=== PATIENT | male | born 1940 | race Caucasian/White ===

== ENCOUNTER 2016-09-25 07:21 | Inpatient (IN) ==
[2016-09-25] MEDS ORDERED: NS 1,000 ML IV PRN (07:29)
--- NOTE | 2016-09-25 08:17 | HISTORY AND PHYSICAL ---
HISTORY OF PRESENT ILLNESS: This is a 76-year-old who has been having some back pain which we thought was musculoskeletal. This has improved. It was in his right lower back. Yesterday, he had some lower abdominal cramping and had 3 stools with a little bit of blood. He denies any fever or chills. Denies any diarrhea. No weight loss. No real change in diet or appetite. PAST MEDICAL HISTORY: History of lymphoma that had been treated and in remission, history of lower back pain with radicular pain in the past, hypertension, hypercholesterolemia, and benign prostatic hypertrophy. ALLERGIES: No known drug allergies. CURRENT MEDICATIONS: Coreg 6.25 mg b.i.d., Lasix 40 mg a day, Prinivil 5 mg a day, spironolactone 12.25 daily, vitamin B complex. He is on Coumadin 5 mg at bedtime. REVIEW OF SYSTEMS: General: No weight gain or loss. No fever or chills. HEENT: Unremarkable. Respiratory: No increased work of breathing or dyspnea. Cardiovascular: No chest pain or tachy palpitation. GI: Unremarkable other than above. : Unremarkable other than above. Musculoskeletal/Neurologic: Some lower back pain. Endocrinologic/Hematologic: No significant history. FAMILY HISTORY: Noncontributory. SOCIAL HISTORY: Negative for alcohol or tobacco. PHYSICAL EXAMINATION: VITAL SIGNS: Temperature 98.1 degrees, pulse 64, respirations 20, blood pressure 120/91. Weight 265 pounds, height 6 feet. HEENT: Pupils are equal and round. LUNGS: Clear in all lung zamarripa. CARDIOVASCULAR: Regular rhythm and rate without murmur or S3. ABDOMEN: Soft. SKIN: Warm and dry. No sign of edema. ASSESSMENT AND PLAN: 1. Hematochezia, lower abdominal cramping. I think it has been several years since he has had a colonoscopy. History of lymphoma in the background. He is on Coumadin. We will check PT and PTT. Admit patient and pursue colonoscopy depending on his lab results. 2. History lymphoma, has been treated and in remission. 3. Osteoarthritis. 4. Coumadin, I believe from previous history of deep venous thrombosis. cc: Brannon Powers MD
[2016-09-25] MEDS ORDERED: ZOFRAN IV PRN (09:45)
[2016-09-25] MEDS ORDERED: ALDACTONE PO SCH (09:45)
[2016-09-25] MEDS ORDERED: TYLENOL PO PRN (09:45)
[2016-09-25 09:54] LABS: MANUAL DIFF NEEDED? NO
[2016-09-25 10:03] LABS: BASO% 0.3 % (0.0-0.8); EOS# 0.15 X1000 (0.0-0.7); HEMATOCRIT 34.8 % (42.0-52.0); HEMOGLOBIN 11.9 g/dL (14.0-18.0); IMM GRAN# 0.04 X1000 (0.0-0.04); IMM GRAN% 0.3 % (0.0-0.5); LYMPH% 20.3 % (20.5-51.1); MCH 33.3 PG (27-31); MCHC 34.2 g/dL (33-37); MCV 97.5 FL (81-99); MONO# 1.49 X1000 (0.11-0.59); MONO% 10.1 % (1.7-9.3); MPV 11.2 FL (7.4-10.4); PLT 334 X1000 (130-400); RBC 3.57 XMIL (4.7-6.1)
[2016-09-25] MEDS: ALDACTONE PO SCH (13:49)
[2016-09-25] MEDS: VICON-C PO SCH (13:49)
[2016-09-25] MEDS: COREG PO SCH ×2 (13:49→22:33)
[2016-09-25] MEDS: PRINIVIL PO SCH (13:49)
[2016-09-25] MEDS: LASIX PO SCH (13:49)
--- NOTE | 2016-09-25 22:26 | CONSULTATION ---
DATE OF CONSULTATION: 09/25/2016 PRIMARY CARE PHYSICIAN: Brannon Powers M.D. PRIMARY FINANCIAL SERVICES TECHNICIAN: Elijah Pacheco M.D. INDICATION FOR CONSULTATION: Rectal bleeding. HISTORY OF PRESENT ILLNESS: The patient is a 76-year-old, white male who states that he was having some difficulty with low back pain. He states that he was placed on pain medication for control of his back pain which led to constipation. Over the next few days, he developed diffuse abdominal pain that is greatest in the right lower quadrant and left lower quadrant. This was followed by 2 days of rectal bleeding. He continues to have diffuse abdominal pain. He is concerned because he has a history of diverticulitis and colon polyps. He last underwent a colonoscopy approximately 5 years by Elijah Pacheco M.D. PAST MEDICAL HISTORY: 1. Lymphoma. 2. Low back pain. 3. Hypertension. 4. Hyperlipidemia. 5. Benign prostatic hypertrophy. 6. Colon polyps. 7. Diverticulitis. 8. DVT. 9. Osteoarthritis. PAST SURGICAL HISTORY: None. MEDICATION ALLERGIES: None. HOME MEDICATIONS: 1. Coreg. 2. Lasix. 3. Prinivil. 4. Spironolactone. 5. Vitamin B complex. 6. Coumadin. FAMILY HISTORY: Negative for colon cancer and esophageal cancer. SOCIAL HISTORY: Negative for alcohol, tobacco or recreational drug use. PHYSICAL EXAMINATION: General: He is in no acute distress. Vital Signs: His blood pressure is 117/78, pulse is 68, respirations 16, temperature of 98.2 degrees. HEENT: Negative for oropharyngeal mucosal lesions. Pulmonary: Lungs are clear to auscultation, percussion and palpation with normal expiratory effort. Cardiovascular: Reveals regular rate and rhythm with no gallops or rubs. Abdominal: Reveals diffuse abdominal tenderness. His entire abdomen is tender around the colon gutter. It is greatest in the right lower quadrant, but he has significant tenderness in the left lower quadrant. There is no rebound or guarding. Extremities: Bilaterally are negative for cyanosis, clubbing, or edema. OBJECTIVE DATA: Remarkable for hemoglobin of 11.9 with hematocrit of 34.8, and a white count of 14.80. He has 334,000 platelets. His magnesium is 2.1 and his TSH is 1.65. There are no other labs available for our review. IMPRESSION: 1. Rectal bleeding. 2. Chronic anticoagulation. 3. Diffuse abdominal pain. 4. History of diverticulitis. 5. History of colon polyps. RECOMMENDATION: 1. The patient is currently receiving anticoagulation. I would currently hold this. There is not a current PT/INR available for our review. I will check this and a CBC. 2. The patient has a history of acute diverticulitis with abdominal wall tenderness that is suggestive of either an acute colitis or diverticulitis. Therefore, please obtain an abdominal-pelvic CT in the morning for further evaluation. It is most worrisome for acute diverticulitis in light of his leukocytosis. Therefore, I will empirically place him on Levaquin and Flagyl pending his CT scan in the morning. 3. Please check a complete metabolic panel and CRP in the morning for further evaluation of his overall clinical status. He will need a complete metabolic panel in order to have the pelvic CT. 4. The patient has been followed by Dr. Elijah Pacheco. He will most likely need a colonoscopy at some point in the future. Therefore, I will defer to Dr. Pacheco in the morning and make him aware of his admission. 5. Additional recommendations to follow by Dr. Elijah Pacheco. cc: MD Elijah Moffett MD MTDD
[2016-09-25] MEDS: FLAGYL 250 MG/NS 250 MG/50 ML IVPB IV SCH (23:40)
[2016-09-26] MEDS: LEVAQUIN 750 MG/D5W 750 MG/150 ML IVPB IV SCH ×2 (00:17→22:54)
[2016-09-26] MEDS: FLAGYL 250 MG/NS 250 MG/50 ML IVPB IV SCH ×5 (05:15→22:53)
--- NOTE | 2016-09-26 06:23 | EKG Report ---
Test Performed on : 09/26/2016 05:40:01 AM Test Reason : chest pain Blood Pressure : / mmHG Vent. 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 with occasional ventricular-paced complexes Left axis deviation Low voltage QRS Cannot rule out Anterior infarct , age undetermined Abnormal ECG When compared with ECG of 12-MAR-2013 17:26, Electronic ventricular pacemaker has replaced Atrial fibrillation. Confirmed by Santhosh MARTINEZ, Brock Sims ([id number]) on 09/27/2016 7:14:55 AM
[2016-09-26 06:24] LABS: MANUAL DIFF NEEDED? NO
[2016-09-26 06:27] LABS: BASO% 0.3 % (0.0-0.8); EOS# 0.28 X1000 (0.0-0.7); EOS% 2.2 % (0.0-10.0); HEMOGLOBIN 11.2 g/dL (14.0-18.0); IMM GRAN# 0.04 X1000 (0.0-0.04); IMM GRAN% 0.3 % (0.0-0.5); LYMPH# 2.95 X1000 (1.2-3.4); LYMPH% 23.4 % (20.5-51.1); MCH 33.4 PG (27-31); MCHC 33.9 g/dL (33-37); MCV 98.5 FL (81-99); MONO# 1.19 X1000 (0.11-0.59); MONO% 9.5 % (1.7-9.3); MPV 10.5 FL (7.4-10.4); NEUT% 64.3 % (42.2-75.2); PLT 311 X1000 (130-400); RBC 3.35 XMIL (4.7-6.1)
[2016-09-26 07:04] LABS: AGAP 9; ALBUMIN 3.4 g/dL (3.5-5.0); ALKALINE PHOSPHATASE 80 U/L (32-122); BUN 20 mg/dL (8-22); CHLORIDE 100 mmol/L (98-107); COSMO 276; GOT 15 U/L (10-34); GPT 12 U/L (10-44); POTASSIUM 4.4 mmol/L (3.5-5.1); SODIUM 137 mmol/L (136-145); TCO2 28 mmol/L (25-35); TOTAL BILIRUBIN 1.27 mg/dL (0.20-1.00); TOTAL PROTEIN 6.2 g/dL (6.3-8.3)
[2016-09-26 07:16] LABS: INR 1.82; PROTIME 19.9 Seconds (9.2-11.7)
--- NOTE | 2016-09-26 08:38 | PROGRESS NOTE ---
DATE: 09/26/2016 SUBJECTIVE: He has not had any further bleeding but he states he has not had any further bowel movement. He was up, has been up early this morning. Did get a little rest last night. OBJECTIVE: Vital signs: Remains afebrile. Temp 98.2 degrees, pulse 72, respirations 18, blood pressure 110/51. Neck: CVP less than 6 cm. Lungs: Clear in all lung zamarripa. Cardiovascular: Regular rhythm and rate without murmur or S3. : Good urine output. LABORATORY: White count 12,590, hematocrit 33, platelet count 311,000. Sodium 137, potassium 4.4, chloride 100, bicarb 28, BUN 20, creatinine 1.1. Liver functions unremarkable. C. reactive protein was 26.9, albumin 3.4. ASSESSMENT AND PLAN: 1. This is a 75-year-old white male. States he is having difficulty with back pain. He was placed on some medication to control his back pain which lead to constipation. Over the next few days he developed diffuse abdominal pain, more prominent in the right but both lower quadrants were hurting, a lot of cramping, and 2 days the rectal bleeding. Patient is on anticoagulation. Patient's protime was 19.9. We have held his Coumadin and I think he is scheduled for a bleeding scan. He is getting an abdominal and pelvic CT with contrast. 2. History lymphoma in the past. 3. Hypertension. Blood pressure is well controlled. 4. He is on Flagyl and metronidazole. Note that his blood counts are stable. Hematocrit 33. PAST MEDICAL HISTORY: 1. Lymphoma. 2. Lower back pain. 3. Hypertension. 4. Hyperlipidemia. 5. Benign prostatic hypertrophy. 6. Colon polyps. 7. Diverticulitis. 8. DVT. 9. Osteoarthritis. cc: Brannon Powers MD
--- NOTE | 2016-09-26 08:50 | Diag Imaging Result Document ---
PROCEDURE NAME: ABDOMEN/PELVIS W/CONTRAST - 09/26/2016 CT OF THE ABDOMEN WITH INTRAVENOUS AND ORAL CONTRAST: FINDINGS: There is fibrosis present in the medial portion of the left lower lobe. There is no evidence of abdominal aortic aneurysm. There is a large partially calcified stone in the gallbladder. This measures at least 19 mm in diameter. There are multiple bilateral renal cysts, the largest being in the upper pole of the right kidney measuring 4.1 cm. There is no evidence of hydronephrosis. There is no evidence of significant adenopathy. The pancreas is unremarkable in appearance. The spleen and adrenal glands are not enlarged. The liver is unremarkable in appearance. There is some gas and stool in the colon. There is some pericolic stranding in the fat around the splenic flexure of the colon. There is at least 1 diverticulum in this area. The descending colon is generally nondistended and possibly thickened with respect to the mucosa. There are numerous diverticula in the sigmoid colon. The small bowel is not distended. CT OF THE PELVIS WITH INTRAVENOUS CONTRAST: FINDINGS: There is stranding in the retroperitoneal fat superficial to the left iliopsoas muscle. There is no evidence of free fluid. There are spondylotic changes throughout the visualized spine. 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 IMPRESSION: 1. Possibility of left-sided colitis versus diverticulitis is suggested. 2. Cholelithiasis.
[2016-09-26] MEDS: PRINIVIL PO SCH (09:22)
[2016-09-26] MEDS: LASIX PO SCH (09:22)
[2016-09-26] MEDS: ALDACTONE PO SCH (09:23)
[2016-09-26] MEDS: VICON-C PO SCH (09:23)
[2016-09-26] MEDS: COREG PO SCH ×2 (09:23→20:25)
--- NOTE | 2016-09-26 17:37 | PROGRESS NOTE ---
DATE: 09/26/2016 SUBJECTIVE: The patient was resting in the bed comfortably, did not complain of much of abdominal pain. Has not had any rectal bleeding. In fact, he has not had any bowel movement today. He is currently on antibiotic and is tolerating liquid diet well. OBJECTIVE: Vital Signs: Temperature 98.1 degrees, pulse was 61 per minute, breathing at 18, blood pressure was 73/43, earlier his blood pressure was 110/51. Abdomen: Distended but soft. Mildly tender in the lower part of the abdomen no rebound tenderness or guarding noted. Bowel sounds are audible. A CT scan of the abdomen revealed inflammation in the left side of the colon suggestive of diverticulitis. He had elevated white count. On admission it was 14.80 and has come down to 12.59. IMPRESSION: 1. Rectal bleeding, improved. 2. Diverticulitis, most likely the cause of his bleeding. Abdominal pain better. RECOMMENDATION: 1. I would continue him on antibiotic. Change it to p.o. 2. I would advance his diet to soft gastrointestinal diet, but avoid high-fiber and high residue diet for now. If he is stable, he can be discharged tomorrow to be followed up at the office. I have discussed the case with the patient and his as well as Dr. Powers. cc: MD Brannon Aguirre MD
[2016-09-27 04:18] VITALS: BP 116/76
[2016-09-27] MEDS: FLAGYL 250 MG/NS 250 MG/50 ML IVPB IV SCH (04:59)
[2016-09-27 06:42] LABS: HEMATOCRIT 36.2 % (42.0-52.0); HEMOGLOBIN 12.1 g/dL (14.0-18.0); MCH 33.3 PG (27-31); MCHC 33.4 g/dL (33-37); MCV 99.7 FL (81-99); MPV 10.5 FL (7.4-10.4); RBC 3.63 XMIL (4.7-6.1)
[2016-09-27 06:59] LABS: CALCIUM 9.5 mg/dL (8.8-10.2); POTASSIUM 4.1 mmol/L (3.5-5.1)
[2016-09-27] MEDS: VICON-C PO SCH (09:08)
[2016-09-27] MEDS: LASIX PO SCH (09:08)
[2016-09-27] MEDS: ALDACTONE PO SCH (09:09)
[2016-09-27] MEDS: PRINIVIL PO SCH (09:11)
[2016-09-27] MEDS: COREG PO SCH (09:11)
--- NOTE | 2016-09-27 10:10 | DISCHARGE SUMMARY ---
ADMISSION DATE: 09/25/2016 DISCHARGE DATE: 09/27/2016 HISTORY OF PRESENT ILLNESS: The patient is a 76-year-old who has been having some back pain on the right side which I felt was musculoskeletal. This has improved a little bit. He is scheduled to see Dr. Dwain Gardner, I believe, for his back, this in a couple of days. His right lower back was where there was discomfort, but then he started having abdominal cramping. He had 3 stools with a little bit of blood, and the cramping became fairly severe. He was admitted to the hospital. HOSPITAL COURSE: A CT of his abdomen showed diverticulitis. We put him on some liquid diet. The question is left-sided colitis versus diverticulitis, most likely diverticulitis. He did have some evidence of cholelithiasis. It was felt he could go home. Will have him stay on kind of a bland diet. DISCHARGE MEDICATIONS: He will be on Lasix 40 mg daily, Levaquin 750 mg p.o. daily for another 2 weeks, and Flagyl 500 mg b.i.d. for 2 weeks, Aldactone 12.5 mg daily, Vicon-C or multivitamin he has been taking every day, Coreg 6.25 mg b.i.d. FOLLOWUP: We will follow him up in my office in a couple of weeks. Dr. Pacheco will see him in 2 weeks in his office. OTHER PERTINENT PAST MEDICAL HISTORY: He has had lymphoma, has been treated and in remission, hypertension, osteoarthritis. He has had a history of DVT, is on Coumadin 5 mg a day. Note that his pro time looked good, so will continue the same Coumadin. cc: Brannon Powers MD
== END 2016-09-27 10:52 | disposition home or self-care (01) ==
LOC: ED 07:21 → 4N 10:44 → SUATTDRO 10:44
PROVIDERS: ADMIT Emergency Medicine; ATTEND Emergency Medicine